=== PATIENT | male | born 1950 | race Caucasian/White ===

== ENCOUNTER 2019-06-18 10:02 | Inpatient (IN) ==
[2019-06-18 11:06] LABS: INR 1.2 (0.9-1.1); Partial Thromboplastin Ratio 0.9; Partial Thromboplastin Time 25.4 Seconds (21.0-31.0); Prothrombin Time 11.8 Seconds (9.0-12.0)
[2019-06-18 11:15] LABS: Albumin Level 3.5 gm/dl (3.4-5.0); BUN Creatinine Ratio 12.7 (10-20); Calcium 8.8 mg/dl (8.5-10.1); Creatinine Clr Calc Pharmacy 59.6 ml/min; Est GFR (African American) 74.1; Est GFR (Non-African American) 63.9; Potassium 4.1 mmol/L (3.5-5.1)
[2019-06-18] MEDS ORDERED: PANTOprazole 80 MG in DEXTROSE 5% 100 ML IV SCH (11:15)
[2019-06-18 11:19] LABS: Hematocrit (blood only) 25.3 % (42-52); Hemoglobin 7.3 g/dL (14.0-18.0); Mean Corpuscular Hemoglobin 23.9 pg (25-34); Mean Corpuscular Hgb Conc 28.9 g/dL (32-36); Mean Corpuscular Volume 82.7 fL (80-100); Mean Platelet Volume 11.6 fL (7.4-10.4); Platelet Count 750 K/uL (130-400); RDW Coefficient of Variation 23.1 % (11.5-14.5); RDW Standard Deviation 68.2 fL (36.4-46.3); Red Blood Count 3.06 M/uL (4.7-6.1); White Blood Count 11.77 K/uL (4.8-10.8)
[2019-06-18 11:27] LABS: Albumin Globulin Ratio 1.1 (0.9-2); Bilirubin,Total 0.5 mg/dl (0.2-1); Globulin 3.2 gm/dl (2.5-4.0); Total Protein 6.7 gm/dl (6.4-8.2); Troponin I 1.21 ng/ml (0-0.045)
[2019-06-18 11:31] LABS: Anisocytosis Present; Basophils # (auto) 0.04 K/uL (0-0.2); Basophils % (auto) 0.3 %; Eosinophils # (auto) 0.36 K/uL (0-0.5); Eosinophils % (auto) 3.1 %; Hypochromasia Present; Immature Granulocytes # (auto) 0.02 K/uL (0.00-0.02); Immature Granulocytes % (auto) 0.2 %; Lymphocytes # (auto) 1.07 K/uL (1.2-3.4); Lymphocytes % (auto) 9.1 %; Monocytes # (auto) 0.63 K/uL (0.11-0.59); Monocytes % (auto) 5.4 %; Neutrophils # (auto) 9.65 K/uL (1.4-6.5); Neutrophils % (auto) 81.9 %; Polychromasia 2+; Spherocytes 1+; Tear Drop Cells 1+
[2019-06-18] MEDS ORDERED: IOVERSOL 100ml IV PRN (11:51)
[2019-06-18] MEDS ORDERED: SODIUM CHLORIDE 0.9% 250 ML IV PRN ×3 (11:55→23:38)
--- NOTE | 2019-06-18 12:01 | CT Scan Report ---
CT abd pelvis IV con only CT DOSE: 742.69 mGycm HISTORY: gastric cancer w/ dark tarry stools TECHNIQUE: Multiaxial CT images of the abdomen and pelvis were performed following the use of intrave nous contrast. A dose lowering technique was utilized adhering to the principles of ALARA. COMPARISON STUDY: None. FINDINGS: The lung bases are clear. Liver is uniform. Spleen is enlarged with a maximum linear dimens ion of 14 cm. It appears to be general wall thickening of the stomach. Components of this may be technical although given the history of a gastric neoplastic process. Neoplasm is not excluded. The small bowel appears to be unremarkable. There is no significant periaortic or mesenteric adenopat hy. The colonic bowel pattern is nonobstructive. There are scattered diverticuli throughout the colon wit h no evidence for acute diverticulitis. The kidneys are negative for hydronephrosis. There are unrema rkable postoperative changes of the low lumbar spine consistent with laminectomy and fusion. IMPRESSION: 1. Generalized rather prominent wall thickening of the stomach 2. This potentially is neoplastic versus technical lack of distention. 3. Moderate splenomegaly. 4. Scattered colonic diverticuli with no evidence for diverticulitis. ACT 112: Negative or not required by law. The above report was generated using voice recognition software. It may contain grammatical, syntax or spelling errors. Electronically signed by: oJsh Charles M.D. 06/18/2019 12:00 PM
[2019-06-18] MEDS: PANTOprazole 40 MG in DEXTROSE 5% 100 ML IV SCH ×3 (12:20→23:06)
[2019-06-18] MEDS ORDERED: ED DKA INSULIN DRIP ONE (12:32)
[2019-06-18] MEDS ORDERED: GLUCAGON FOR INJ 1 MG VIAL SQ PRN (12:32)
[2019-06-18] MEDS ORDERED: GLUCOSE 10 TABS/TUBE PO PRN (12:32)
[2019-06-18] MEDS ORDERED: SODIUM CHLORIDE 0.9% 1000ML 1,000 ML IV ONE (12:32)
[2019-06-18] MEDS ORDERED: DEXTROSE 50% 50 ML SYRINGE IV PRN (12:32)
[2019-06-18] MEDS ORDERED: GLUCOSE 40% GEL 15 GM TUBE PO PRN (12:32)
[2019-06-18] MEDS ORDERED: DKA GOAL RANGE 150-250 mg/dl ONE (12:32)
[2019-06-18] MEDS ORDERED: CARBOHYDRATES FOR HYPOGLYCEMIA PO PRN (12:32)
[2019-06-18] MEDS ORDERED: INSULIN REGULAR 250 UNITS in SODIUM CHLORIDE 0.9% 247.5 ML IV SCH (12:45)
--- NOTE | 2019-06-18 13:24 | History & Physical Report ---
Date of Service June 18, 2019 Assessment & Plan (1) Anemia: (2) Melena: Pt is 68 y/o M with PMH HTN, HLD, h/o SMA stenosis, myeloproliferative disorder, thrombocytosis, iron deficiency anemia, gastric carcinoma presented to ER for anemia - Hgb: 6.7 found on outpatient labs today. H/O EGD: 04/10/19 - signet ring cell carcinoma, gastric ulcer Today In ER P: 64, R: 20, BP: 108/64, 99% on RA. H/H: 7.3/25.3. (baseline Hgb~8-9, was 9.0 on 06/08/19), INR: 1.2, Plt: 750 CT ABD/PELVIS: Generalized rather prominent wall thickening of the stomach, This potentially is neoplastic versus technical lack of distention. Moderate splenomegaly. Scattered colonic diverticuli with no evidence for diverticulitis. -Fecal occult pending -In ER given Protonix bolus and drip -Continue Protonix IV -NPO -Transfuse 2 units PRBCs -Monitor H&H -Alcohol cessation encouraged -Avoid NSAIDs -Will continue aspirin 81mg with current elevated troponin -GI consult, spoke with MARSHA Rick -CBC, BMP in am (3) Elevated troponin: Anterior Chest pain yesterday and 2 days ago. No current CP Troponin: 1.2. EKG T wave inversions inferiorly, laterally, new compared to EKG 08/2018 R/O ACS. Risk factors: HTN, hyperlipidemia. DDX: Demand ischemia -Monitor Vitals -Repeat EKG in am -Will trend troponin -Echo -Continue statin, atenolol -Will continue aspirin for now ASA -Hold on heparin secondary to anemia as above -Cardiology consult (4) Gastric cancer: Following with Dr Givens for signet ring cell gastric carcinoma diagnosed in 03/2019. Pt was to start modified FOLFOX 6 chemo today, however was not started yet. Planned surgical intervention with Dr Gallardo at [facility]. Had port placed by Dr Cobian on 06/12/2019. 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 See addendum History of Present Illness Chief Complaint: Abnormal labs- anemia Primary Care Provider: Jesenia Hartman MD Pt is 68 y/o M with PMH HTN, HLD, h/o SMA stenosis, gastric carcinoma presented to ER for anemia found on outpatient labs today. Pt with history myeloproliferative disorder, thrombocytosis, iron deficiency anemia and is following with Dr Givens for signet ring cell gastric carcinoma diagnosed in 03/2019. Pt was to start modified FOLFOX 6 chemo today, however was not started yet. Planned surgical intervention with Dr Gallardo at [facility]. Pt had port placed by Dr Cobian on 06/12/2019. Today outpatient labs with Hgb: 6.7 and was referred to ER. Pt reports daily melena since 02/2019. Pt reports chronic fatigue and generalized weakness however reports increased fatigue past several days. 3 days ago noted dizziness with standing. Today SOB with climbing flight of stairs. Pt states 2 days ago had constant aching pain across his chest that was worse with lying supine. Denies any SOB, diaphoresis or dizziness with the CP. He took 3 OTC Aleve that evening and yesterday reports had decreased CP. Today without any further chest pain. Denies nausea, vomiting or abdominal pain. Drinks 3-4 beers daily. Takes Aleve a couple of times a month. Denies history blood transfusion in past. Denies fever/chills, diaphoresis, [place], syncope, vision changes, neck pain, orthopnea, palpitations, cough, sore throat, choking, otalgia, rhinorrhea, paresthesias, weakness, extremity weakness, extremity edema, rashes, urinary symptoms. Allergies Allergy/AdvReac Type Severity Reaction Status Date / Time No Known Allergies Allergy Verified 06/18/19 11:05 Home Medications Home Medications Medication Instructions Recorded Confirmed Type aspirin [Aspirin Low Dose] 81 mg PO QAM 04/05/19 06/18/19 History atenolol 50 mg PO QAM 04/05/19 06/18/19 History cholecalciferol (vitamin D3) 1,000 unit PO QAM 04/05/19 06/18/19 History [Vitamin D3] ferrous sulfate 143 mg PO QAM 04/05/19 06/18/19 History losartan 50 mg PO QAM 04/05/19 06/18/19 History omeprazole 40 mg PO QAM 04/05/19 06/18/19 History simvastatin 40 mg PO DAILY 04/05/19 06/18/19 History Past Med/Surg History Medical History Anemia GERD (gastroesophageal reflux disease) Hyperlipidemia Hypertension Iron deficiency anemia Lumbar stenosis Myeloproliferative disorder SMA stenosis Thrombocytosis Surgical History Fusion of spine lumbar History of carpal tunnel release left History of colonoscopy History of esophagogastroduodenoscopy (EGD) 04/10/19 - signet ring cell carcinoma, gastric ulcer; [facility] History of esophagogastroduodenoscopy (EGD) 05/10/2019 - EGD, EUS; [facility] History of tonsillectomy Family History Mother FHx: breast cancer Social History Preferred Language: Malawian Communication Ability: Effective Record Filing Clerk Required: No Beliefs That Will Affect Care: None Current Living Situation: Significant Other Other Information That Helps Us Care for You: No Feels Safe at Home: Yes Safety Concerns: Feels Safe At This Time Smoking Status: Former smoker Tobacco Type: cigarettes ; Cigarettes Per Day: 1 ppd x 38 years ; Second Hand Exposure: No ; Hx Alcohol Use: Yes (3-4 beers a day ) Alcohol type: beer Hx Substance Use: No Review of Systems Review of Systems: All systems reviewed & are unremarkable except as noted in HPI & below Physical Exam Physical Exam: General: no distress, WDWN Head: normocephalic, atraumatic Eyes: PERRL, EOM's intact, conjunctiva pale, anicteric ENT: normal inspection external ears, nose, mucous membranes moist Neck: supple, trachea midline Lungs: clear, no respiratory distress, no wheezing/rhonchi/rales CV: RRR, no murmur, no pretibial edema; left upper chest wall with healing incision without erythema Abd: normal BS, soft, non-tender Ext: no cyanosis, no calf tenderness Neuro: A&O x 3, no focal deficits noted, normal affect Skin: warm, dry Results & Data Vital Signs (Past 12 Hours) Vital Signs Temp Pulse Resp BP Pulse Ox 06/18/19 13:15 36.8 C 67 18 116/83 95 06/18/19 12:31 19 06/18/19 12:30 22 120/66 06/18/19 12:01 65 16 06/18/19 12:00 64 18 126/76 06/18/19 11:52 69 12 133/86 06/18/19 11:30 65 20 96 06/18/19 11:00 63 18 96 06/18/19 10:41 62 18 100 06/18/19 10:36 62 17 117/59 L 100 06/18/19 10:31 99 06/18/19 10:24 36.7 C 64 20 108/64 99 Laboratory Results Short CBC 06/18/19 Range/Units 10:38 WBC 11.77 H (4.8-10.8) K/uL Hgb 7.3 L (14.0-18.0) g/dL Hct 25.3 L (42-52) % Plt Count 750 H (130-400) K/uL BMP 06/18/19 10:38 Sodium 141 Potassium 4.1 Chloride 109 H Carbon Dioxide 27 BUN 15 Creatinine 1.18 Glucose 106 H Calcium 8.8 Cardiac Enzymes 06/18/19 Range/Units 10:38 Troponin I 1.210 H* (0-0.045) ng/ml Liver Function 06/18/19 Range/Units 10:38 Total Bilirubin 0.5 (0.2-1) mg/dl AST 19 (15-37) U/L ALT 14 (12-78) U/L Alkaline Phosphatase 81 (45-117) U/L Albumin 3.5 (3.4-5.0) gm/dl Diagnostic Findings CXR: IMPRESSION: No active disease in the chest. CT ABD/PELVIS: IMPRESSION: 1. Generalized rather prominent wall thickening of the stomach 2. This potentially is neoplastic versus technical lack of distention. 3. Moderate splenomegaly. 4. Scattered colonic diverticuli with no evidence for diverticulitis. ECG Rate (beats per minute): 62 Rhythm: sinus rhythm Findings: + T-wave inversion (Inferior, Lateral) Code Status & VTE Plan VTE Prophylaxis Plan VTE Prophylaxis will be ordered: Yes Supervising Physician Co-Signing Physician Notes HISTORY: Record reviewed. Patient interviewed and examined in ED. Care coordinated with Sarah Lance PA-C. Please refer to her documentation for complete history. Briefly, 68 YO male w history of hypertension, SMA stenosis, adenocarcinoma of stomach. Gastric Ca diagnosed in March (EGD revealed gastric ulcer, path demonstrated adenocarcinoma). Intermittent dark stools since February. Baseline Hgb around 9. Labs done earlier today in clinic demonstrated Hgb of 6.7. Referred to ED for further management. Taking aspirin 81 mg daily + naproxen PRN. Drinks a few beers / day. Episode of chest pain 2 days prior to admission. CP occurred after eating chicken wing and described as sharp pain across chest. It was not pleuritic in nature. CP was worse in supine position and better when sitting up. Associated with mild SOB and diaphoresis; no N/V. Pain lasted all night long and was relieved by naproxen the next morning. No exertional chest pain, but he was very fatigued after climbing stairs in clinic today. EXAM: General- no distress Lungs- clear to auscultation; no respiratory distress Cardiovascular- RRR; no murmur; no gallop; no rub; no JVD; no pretibial edema Abdomen- + bowel sounds, soft, nontender Extremities- no cyanosis; no calf tenderness Neuro- alert, oriented Skin- warm & dry DATA: Hgb 7.3, MCV 82.7, WBC 11,770, plts 750,000. PT 11.8, INR 1.2, PTT 25. Lytes, BUN, creatinine normal. Troponin 1.210. Other lab studies as noted. Chest x-ray reviewed - left subclavian port, no infiltrates, effusions, CHF. EKG performed at 1039 reviewed and demonstrated NSR at 62 / minute, downsloping ST segments V5-6, inverted T-waves inferiorly and laterally. ASSESSMENT AND PLAN: CHEST PAIN CP as described above. Troponin I elevated. EKG shows inferolateral ST / T-wave changes as noted. Consider acute coronary syndrome (e.g., non-STEMI), dianna / pericarditis, pulmonary embolism. Check echo. Consult Cardiology. Will not order CTA chest at this time because (1) IV contrast administered for CT abdomen (2) anticoagulation / thrombolytics contraindicated. Check venous duplex lower extremities. Hold or continue ASA? ANEMIA / GI BLEED Intermittent GI bleeding from malignant gastric ulcer. Hgb 7.3. lower than baseline. Hemodynamically stable. 2 units pRBC's ordered.. PPI. Follow H/H. GI consulted. ADENOCARCINOMA OF STOMACH Per Heme / Onc. Please refer to REZA Lance's documentation for discussion of other issues. (1) Gastric cancer Malignant neoplasm of stomach location: unspecified location Qualified Code(s): C16.9 - Malignant neoplasm of stomach, unspecified
--- NOTE | 2019-06-18 14:03 | XRay Report ---
XR chest 1V portable CLINICAL HISTORY: chest pain, anemia COMPARISON STUDY: 07/04/2014 FINDINGS: The heart is the upper limits of normal in size. There is no failure. There is no focal pul monary consolidation. There are no pleural effusions. There is a left-sided A-Port catheter. There is no pneumothorax. There is no free intraperitoneal air.[ IMPRESSION: No active disease in the chest. ACT 112: Negative or not required by law. Electronically signed by: Benjamin Hatch M.D. 06/18/2019 2:01 PM
--- NOTE | 2019-06-18 15:14 | Gastrointestinal Consultation ---
Date of Consultation June 18, 2019 Assessment & Plan (1) Melena: (2) Elevated troponin: (3) Anemia: (4) Gastric cancer: Pt is a 68 y/o male w gastric adenocarcinoma who was referred to ED for symptomatic anemia. He had received 2 doses of Venofer IV, last on 05/30. He was supposed to start FOLFOX chemo today but cancelled due to anemia. Plan was for him to undergo FOLFOX x 3 then gastrectomy by GI Surgery. He does have melena but this hasn't changed in amt, frequency. He has SHIELDS, chest pressure and fatigue symptoms. Troponin up on eval. - PRBC transfusion and monitor H/H closely. - PPI bolus and gtt - Cardiology to be consulted - Will monitor pt and potentially repeat EGD if cleared by Cardiology Attg add: I interviewed and examined pt, reviewed chart and labs. Pt with ho gastric cancer presenting as an ulcer without mass effect now admit with intermittent melena, anemia. Of note, BUN is not elevated. Recs as above- Likely bleeding from gastric cancer. Would consider EGD if cleared by cards to revaluate malignant ulcer, to see if there is any possibility of intervention that may decrease risk of re-bleed. History of Present Illness Reason for Consultation: Anemia, melena; hx of gastric adenocarcinoma Requesting Physician: Dr. Wade Jones Attending Physician: Dr. Timothy Etienne History of Present Illness Pt is a 68 y/o male who was diagnosed with gastric adenocarcioma via EGD/EUS 05/10/2019 who was referred to ED today after outpt blood ct showed severe anemia w Hgb of 6. Baseline Hgb close to 9. He had received Venofer IV 05/23 and 05/31. He takes iron supplements daily. He was supposed to start his first round of chemo but this got cancelled after abnormal blood ct. Plan was for him to undergo 3 rounds of FOLFOX then gastrectomy by Dr. Rex Gallardo (GI Surgery). He had been noticing dark tarry stools since February with each bowel movement. Frequency, amount and consistency of stools havent' changed. However last weekend he started to notice dyspnea on exertion, chest pressure, fatigue. Denies abd pain, n/v. he previously had gastric ulcers seen on March 2019 EGD, he admits to take Aleve periodically for leg pain but had stopped this recently. He drinks 2 beers a day, denies tobacco uses. Labs reviewed: WBC 11, H/H 7.3/25, MCV 82, Plt 750, PT/INR 11.8/1.2, BUN/Cr 15/1.18. Troponin up 1.2 CT abd/pelvis w contrast: 1. Generalized rather prominent wall thickening of the stomach 2. This potentially is neoplastic versus technical lack of distention. 3. Moderate splenomegaly. 4. Scattered colonic diverticuli with no evidence for diverticulitis. CXR: IMPRESSION: No active disease in the chest. Allergies Allergy/AdvReac Type Severity Reaction Status Date / Time No Known Allergies Allergy Verified 06/18/19 11:05 Home Medications Home Medications Medication Instructions Recorded Confirmed Type aspirin [Aspirin Low Dose] 81 mg PO QAM 04/05/19 06/18/19 History atenolol 50 mg PO QAM 04/05/19 06/18/19 History cholecalciferol (vitamin D3) 1,000 unit PO QAM 04/05/19 06/18/19 History [Vitamin D3] ferrous sulfate 143 mg PO QAM 04/05/19 06/18/19 History losartan 50 mg PO QAM 04/05/19 06/18/19 History omeprazole 40 mg PO QAM 04/05/19 06/18/19 History simvastatin 40 mg PO DAILY 04/05/19 06/18/19 History Patient History Medical History Anemia GERD (gastroesophageal reflux disease) Hyperlipidemia Hypertension Iron deficiency anemia Lumbar stenosis Myeloproliferative disorder SMA stenosis Thrombocytosis Surgical History Fusion of spine lumbar History of carpal tunnel release left History of colonoscopy History of esophagogastroduodenoscopy (EGD) 04/10/19 - signet ring cell carcinoma, gastric ulcer; [facility] History of esophagogastroduodenoscopy (EGD) 05/10/2019 - EGD, EUS; [facility] [place] [facility] History of tonsillectomy Family History Mother FHx: breast cancer Social History Preferred Language: Citizen Of [place] Communication Ability: Effective Industrial Designer Required: No Beliefs That Will Affect Care: None marital status: Single Current Living Situation: Significant Other Other Information That Helps Us Care for You: No Feels Safe at Home: Yes Safety Concerns: Feels Safe At This Time Smoking Status: Former smoker Tobacco Type: cigarettes ; Cigarettes Per Day: 1 ppd x 38 years ; Second Hand Exposure: No ; Hx Alcohol Use: Yes (3-4 beers a day ) Alcohol type: beer Hx Substance Use: No Review of Systems Review of Systems: All systems reviewed & are unremarkable except as noted in HPI & below Physical Exam Constitutional: WD/WN, vitals as above well groomed, cooperative and comfortable Eyes: PERRL, conjunctivae normal, anicteric sclerae ENMT: external ear and nose normal, oropharynx normal Respiratory: normal respiratory effort, lungs clear to auscultation Cardiovascular: RRR, no murmur, no edema Gastrointestinal (Abdomen): normal bowel sounds, soft, nontender, no hepatosplenomegaly Skin: no rashes, warm and dry no jaundice Psychiatric: A+Ox3, euthymic affect Lymphatic: no lymphedema Results & Data ([facility]) Vital Signs (Past 12 Hours) Vital Signs Temp Pulse Resp BP Pulse Ox 06/18/19 14:30 68 18 136/78 06/18/19 14:00 36.7 C 66 18 139/73 98 06/18/19 13:45 36.8 C 69 18 143/77 H 97 06/18/19 13:30 36.8 C 69 18 138/71 97 06/18/19 13:15 36.8 C 67 18 116/83 95 06/18/19 12:31 19 06/18/19 12:30 22 120/66 06/18/19 12:01 65 16 06/18/19 12:00 64 18 126/76 06/18/19 11:52 69 12 133/86 06/18/19 11:30 65 20 96 06/18/19 11:00 63 18 96 06/18/19 10:41 62 18 100 06/18/19 10:36 62 17 117/59 L 100 06/18/19 10:31 99 06/18/19 10:24 36.7 C 64 20 108/64 99 (1) Gastric cancer Malignant neoplasm of stomach location: unspecified location Qualified Code(s): C16.9 - Malignant neoplasm of stomach, unspecified
[2019-06-18] MEDS ORDERED: NITROGLYCERIN SL 0.4 MG/TAB TAB SL PRN (15:54)
[2019-06-18] MEDS ORDERED: ONDANSETRON INJ 2 MG/ML 2 ML VIAL IV PRN (15:54)
[2019-06-18] MEDS ORDERED: ACETAMINOPHEN 325 MG TAB PO PRN (15:54)
[2019-06-18] MEDS ORDERED: INSULIN ASPART 100 UNITS/ML 3 ML PEN SC SCH (16:30)
--- NOTE | 2019-06-18 16:34 | Cardiology Consultation ---
Date of Consultation June 18, 2019 Assessment & Plan (1) Elevated troponin: Patient presents noting symptoms of chest pain no atypical for angina over the past weekend symptoms described as burning sharp pain after meal of hot wings. Improved when sitting upright. He is significantly anemic on presentation for anticipated chemotherapy today EKG demonstrates new inferolateral ST segment inversion. Echocardiogram demonstrates subtle hypokinesis of the inferior posterior byrne with preserved LV function moderate mitral discussion sufficiency Plan: We will trend troponins assess for acute change. Ultimate goal be to stabilize medically if possible as any coronary or cardiac intervention would warrant anticoagulation and dual antiplatelet therapies for minimum 1 month. We will continue atenolol add topical nitrates continue losartan agree with transfusion aggressively to hemoglobin greater than 10 given possible anemia induced ischemia We will keep n.p.o. after midnight and follow with you (2) Symptomatic anemia: (3) Hypertension: (4) Gastric cancer: History of Present Illness Reason for Consultation: Chest pain, abnormal EKG Requesting Physician: Dr. Wade Jones Attending Physician: Wade Jones MD History of Present Illness Patient is a 68-year-old male without prior cardiac history per description but carries an underlying history of recent diagnosis of gastric carcinoma with associated profound anemia, underlying myelo proliferative disorder with thrombocytosis. On therapy for chronic hypertension and hyperlipidemia Patient last week underwent port insertion and anticipated beginning chemotherapy today. On presentation he was noted to be markedly anemic has been transferred for further treatment and evaluation. He does note some episodes of chest pressure pain over the weekend. Symptoms are described as sharp pain when recumbent improved when sitting upright after eating a plate of wings. Symptoms lasted all night on Tuesday night. Worse again postprandially on Tuesday. No prior history of angina myocardial infarction congestive heart failure. No recent fevers chills or infections. Only minimal tenderness over surgical incision the left chest. Appetite is usually good. Patient is a non-smoker since 2006. Does drink up to 6 beers per day. No diarrhea loose stools though stools are chronically black on iron supplement Currently without symptoms or complaints. EKG on presentation to ER however demonstrates T wave inversion in the inferolateral leads Allergies Allergy/AdvReac Type Severity Reaction Status Date / Time No Known Allergies Allergy Verified 06/18/19 11:05 Home Medications Home Medications Medication Instructions Recorded Confirmed Type aspirin [Aspirin Low Dose] 81 mg PO QAM 04/05/19 06/18/19 History atenolol 50 mg PO QAM 04/05/19 06/18/19 History cholecalciferol (vitamin D3) 1,000 unit PO QAM 04/05/19 06/18/19 History [Vitamin D3] ferrous sulfate 143 mg PO QAM 04/05/19 06/18/19 History losartan 50 mg PO QAM 04/05/19 06/18/19 History omeprazole 40 mg PO QAM 04/05/19 06/18/19 History simvastatin 40 mg PO DAILY 04/05/19 06/18/19 History Patient History Medical History Anemia GERD (gastroesophageal reflux disease) Hyperlipidemia Hypertension Iron deficiency anemia Lumbar stenosis Myeloproliferative disorder SMA stenosis Thrombocytosis Surgical History Fusion of spine lumbar History of carpal tunnel release left History of colonoscopy History of esophagogastroduodenoscopy (EGD) 04/10/19 - signet ring cell carcinoma, gastric ulcer; [facility] History of esophagogastroduodenoscopy (EGD) 05/10/2019 - [place] [facility] [place] of tonsillectomy Family History Mother FHx: breast cancer Social History Preferred Language: Citizen Of [place] Communication Ability: Effective Acid Supervisor Required: No Beliefs That Will Affect Care: None Current Living Situation: Significant Other Other Information That Helps Us Care for You: No Feels Safe at Home: Yes Safety Concerns: Feels Safe At This Time Smoking Status: Former smoker Tobacco Type: cigarettes ; Cigarettes Per Day: 1 ppd x 38 years ; Second Hand Exposure: No ; Hx Alcohol Use: Yes (3-4 beers a day ) Alcohol type: beer Hx Substance Use: No Review of Systems Review of Systems: All systems reviewed & are unremarkable except as noted in HPI & below Physical Exam Constitutional: no acute distress Eyes: PERRL, conjunctivae normal, anicteric sclerae ENMT: external ear and nose normal, oropharynx normal Neck: trachea midline, no thyromegaly Respiratory: normal respiratory effort, lungs clear to auscultation Cardiovascular: Rate/Rhythm: regular rate and regular rhythm Heart Sounds: normal S1 and normal S2; no gallop and no murmur Palpation: normal PMI Vessels: normal carotid upstroke and radial pulses present; no JVD and no carotid bruit Extremities: no edema Chest (Breasts): Additional Comments: Recently implanted a port in the upper left chest incision clean without tenderness Gastrointestinal (Abdomen): normal bowel sounds, soft, nontender, no hepatosplenomegaly Musculoskeletal: no cyanosis or clubbing, extremities motor strength 5/5 Skin: no rashes, warm and dry Neurologic: PERRL, EOMI, accommodation nl, no face palsy, no dysarthria Psychiatric: A+Ox3, euthymic affect Results & Data ([facility]) Vital Signs (Past 12 Hours) Vital Signs Temp Pulse Resp BP Pulse Ox 06/18/19 14:30 68 18 136/78 06/18/19 14:00 36.7 C 66 18 139/73 98 06/18/19 13:45 36.8 C 69 18 143/77 H 97 06/18/19 13:30 36.8 C 69 18 138/71 97 06/18/19 13:15 36.8 C 67 18 116/83 95 06/18/19 12:31 19 06/18/19 12:30 22 120/66 06/18/19 12:01 65 16 06/18/19 12:00 64 18 126/76 06/18/19 11:52 69 12 133/86 06/18/19 11:30 65 20 96 06/18/19 11:00 63 18 96 06/18/19 10:41 62 18 100 06/18/19 10:36 62 17 117/59 L 100 06/18/19 10:31 99 06/18/19 10:24 36.7 C 64 20 108/64 99 Laboratory Results Laboratory Results - last 24 hr 06/18/19 06/18/19 06/18/19 10:38 10:38 10:38 WBC 11.77 H RBC 3.06 L Hgb 7.3 L Hct 25.3 L MCV 82.7 MCH 23.9 L MCHC 28.9 L RDW Std Deviation 68.2 H RDW Coeff of Evens 23.1 H Plt Count 750 H MPV 11.6 H Immature Gran % (Auto) 0.2 Neut % (Auto) 81.9 Lymph % (Auto) 9.1 [place] % (Auto) 5.4 Eos % (Auto) 3.1 Baso % (Auto) 0.3 Immature Gran # (Auto) 0.02 Neut # (Auto) 9.65 H Lymph # (Auto) 1.07 L [place] # (Auto) 0.63 H Eos # (Auto) 0.36 Baso # (Auto) 0.04 Polychromasia 2+ Hypochromasia Present Anisocytosis Present Spherocytes 1+ Tear Drop Cells 1+ PT 11.8 INR 1.2 H APTT 25.4 PTT Ratio 0.9 Sodium Potassium Chloride Carbon Dioxide Anion Gap BUN Creatinine Est Cr Clr Drug Dosing Est GFR ( Amer) Est GFR (Non-Af Amer) BUN/Creatinine Ratio Glucose Calcium Total Bilirubin AST ALT Alkaline Phosphatase Troponin I Total Protein Albumin Globulin Albumin/Globulin Ratio Blood Type O Positive Blood Type Recheck Antibody Screen NEGATIVE Crossmatch See Detail 06/18/19 06/18/19 06/18/19 10:38 12:05 16:20 WBC RBC Hgb Hct MCV MCH MCHC RDW Std Deviation RDW Coeff of Evens Plt Count MPV Immature Gran % (Auto) Neut % (Auto) Lymph % (Auto) [place] % (Auto) Eos % (Auto) Baso % (Auto) Immature Gran # (Auto) Neut # (Auto) Lymph # (Auto) [place] # (Auto) Eos # (Auto) Baso # (Auto) Polychromasia Hypochromasia Anisocytosis Spherocytes Tear Drop Cells PT INR APTT PTT Ratio Sodium 141 Potassium 4.1 Chloride 109 H Carbon Dioxide 27 Anion Gap 5.0 BUN 15 Creatinine 1.18 Est Cr Clr Drug Dosing 59.6 Est GFR ( Amer) 74.1 Est GFR (Non-Af Amer) 63.9 BUN/Creatinine Ratio 12.7 Glucose 106 H Calcium 8.8 Total Bilirubin 0.5 AST 19 ALT 14 Alkaline Phosphatase 81 Troponin I 1.210 H* Pending Total Protein 6.7 Albumin 3.5 Globulin 3.2 Albumin/Globulin Ratio 1.1 Blood Type Blood Type Recheck O Positive Antibody Screen Crossmatch (1) Gastric cancer Malignant neoplasm of stomach location: unspecified location Qualified Code(s): C16.9 - Malignant neoplasm of stomach, unspecified
--- NOTE | 2019-06-18 16:35 | Emergency Department Note ---
Entered by Ayse Perez acting as a scribe for History of Present Illness General Chief complaint: Abnormal Labs/Diagnostic Testing Stated complaint: ABNORMAL LABS, SENT BY Source: patient History of Present Illness Onset (ago): month(s) 3 Location: abdomen (dark stool) Pain Consistency: + other (persistent) Quality: + other (dark stool) Associated symptoms: no cough and no nausea/vomiting Treatments prior to arrival: none The patient is a 68 year old male presenting to the Emergency Department complaining of persistent dark stools starting 3 months ago. The patient reports that his stool has been dark colored for months. He states that he had outpatient lab work done [employer] that showed his hemoglobin was 6.7, down from his previous count which was 9. He explains that he has never experienced these symptoms before. He notes that he hasnt taken any medications for his symptoms [employer]. The patient reports that he has gastric cancer and was supposed to start chemotherapy this morning at 0900. He states that he follows with Dr. Givens Oncologist. He notes that he doesnt use blood thinners. The patient denies nausea, vomiting, cough, rhinorrhea and history of abdominal surgeries. Home Medications Home Medications Medication Instructions Recorded Confirmed Type aspirin [Aspirin Low Dose] 81 mg PO QAM 04/05/19 06/18/19 History atenolol 50 mg PO QAM 04/05/19 06/18/19 History cholecalciferol (vitamin D3) 1,000 unit PO QAM 04/05/19 06/18/19 History [Vitamin D3] ferrous sulfate 143 mg PO QAM 04/05/19 06/18/19 History losartan 50 mg PO QAM 04/05/19 06/18/19 History omeprazole 40 mg PO QAM 04/05/19 06/18/19 History simvastatin 40 mg PO DAILY 04/05/19 06/18/19 History Allergies Allergy/AdvReac Type Severity Reaction Status Date / Time No Known Allergies Allergy Verified 06/18/19 11:05 Past Med/Surg History Medical History Anemia GERD (gastroesophageal reflux disease) Hyperlipidemia Hypertension Iron deficiency anemia Lumbar stenosis Myeloproliferative disorder SMA stenosis Thrombocytosis Surgical History Fusion of spine lumbar History of carpal tunnel release left History of colonoscopy History of esophagogastroduodenoscopy (EGD) 04/10/19 - signet ring cell carcinoma, gastric ulcer; [facility] [place] History of esophagogastroduodenoscopy (EGD) 05/10/2019 - EGD, EUS; [facility] [place] History of tonsillectomy Family History Mother FHx: breast cancer Social History Preferred Language: [place] Communication Ability: Effective Representative Required: No Beliefs That Will Affect Care: None Current Living Situation: Significant Other Other Information That Helps Us Care for You: No Feels Safe at Home: Yes Safety Concerns: Feels Safe At This Time Smoking Status: Former smoker Tobacco Type: cigarettes ; Cigarettes Per Day: 1 ppd x 38 years ; Second Hand Exposure: No ; Hx Alcohol Use: Yes (3-4 beers a day ) Alcohol type: beer Hx Substance Use: No Review of Systems See HPI for pertinent positives & negatives. and A total of 10 systems reviewed and were otherwise negative Physical Exam Vital Signs Vital Signs - 24 hr 06/18/19 10:24 06/18/19 10:31 06/18/19 10:36 Temperature 36.7 C Temperature Source Oral Pulse Rate 64 62 Pulse Rate from SpO2 Sensor 63 Respiratory Rate 20 17 Respiratory Effort / Characteristics Non-Labored Spontaneous Respiratory Depth Normal Respiratory Pattern Regular Blood Pressure 108/64 117/59 L Blood Pressure Mean 78 77 Blood Pressure Position Sitting Pulse Oximetry 99 99 100 Oxygen Delivery Method Room Air Room Air Sepsis Recent Fever Within 48 Hours No Sepsis New/Unexplained Change in Mental Status No Sepsis Action Taken by Nursing No Action Required 06/18/19 10:41 06/18/19 11:00 06/18/19 11:30 Temperature Temperature Source Pulse Rate 62 63 65 Pulse Rate from SpO2 Sensor 63 63 64 Respiratory Rate 18 18 20 Respiratory Effort / Characteristics Respiratory Depth Respiratory Pattern Blood Pressure Blood Pressure Mean Blood Pressure Position Pulse Oximetry 100 96 96 Oxygen Delivery Method Sepsis Recent Fever Within 48 Hours Sepsis New/Unexplained Change in Mental Status Sepsis Action Taken by Nursing 06/18/19 11:52 06/18/19 12:00 06/18/19 12:01 Temperature Temperature Source Pulse Rate 69 64 65 Pulse Rate from SpO2 Sensor Respiratory Rate 12 18 16 Respiratory Effort / Characteristics Respiratory Depth Respiratory Pattern Blood Pressure 133/86 126/76 Blood Pressure Mean 97 89 Blood Pressure Position Pulse Oximetry Oxygen Delivery Method Sepsis Recent Fever Within 48 Hours Sepsis New/Unexplained Change in Mental Status Sepsis Action Taken by Nursing 06/18/19 12:30 06/18/19 12:31 Temperature Temperature Source Pulse Rate Pulse Rate from SpO2 Sensor Respiratory Rate 22 19 Respiratory Effort / Characteristics Respiratory Depth Respiratory Pattern Blood Pressure 120/66 Blood Pressure Mean 83 Blood Pressure Position Pulse Oximetry Oxygen Delivery Method Sepsis Recent Fever Within 48 Hours Sepsis New/Unexplained Change in Mental Status Sepsis Action Taken by Nursing GENERAL: Patient is sitting up in bed, chronically ill appearing. NAD. Non- toxic. EYE EXAM: normal conjunctiva. OROPHARYNX: no exudate, no erythema, lips, buccal mucosa, and tongue normal and mucous membranes are moist NECK: supple, no nuchal rigidity, no adenopathy, non-tender LUNGS: Clear to auscultation. Normal chest wall mechanics HEART: no murmurs, S1 normal and S2 normal CHEST: Port in left upper chest wall. Incision C/D/I. ABDOMEN: abdomen soft, non-tender, normo-active bowel sounds, no masses, no rebound or guarding. BACK: Back is symmetrical on inspection and there is no deformity, no midline tenderness, no CVA tenderness. SKIN: no rashes and no bruising UPPER EXTREMITIES: upper extremities are grossly normal. LOWER EXTREMITIES: No pitting edema. NEURO EXAM: Normal sensorium, cranial nerves II-XII grossly intact, normal speech, no gross weakness of arms, no gross weakness of legs. Course Course ED COURSE: Vital signs were reviewed and normal. The patients medical record was reviewed The above diagnostic studies were performed and reviewed. ED treatments and interventions as stated above. 1035: The patient was evaluated in room B8. A complete history and physical examination was performed. 1218: I discussed the patients case with Emi Ayala PA-C. Dr. Karen Graham hospitalist will evaluate the patient for further management. 1222: Upon reevaluation, I discussed my findings with the patient and he unde cecilio and agrees with the treatment plan. Based on the patients age, coexisting illnesses, exam and lab findings the decision to treat as an inpatient was made. The patient remained stable while under my care. The patient will be evaluated for further management. Administered Medications Pantoprazole Sodium 40 mg/ (Dextrose) 100 mls @ 20 mls/hr IV Q5H CRISTIANE Stop: 07/18/19 11:29 Last Admin: 06/18/19 12:20 Dose: 20 mls/hr Documented by: [id number] Discontinued Medications Pantoprazole Sodium 80 mg/ (Dextrose) 120 mls @ 480 mls/hr IV TODAY@1115 CRISTIANE Stop: 06/18/19 11:29 Last Infusion: 06/18/19 12:20 Dose: 0 mls/hr Documented by: [id number] Admin: 06/18/19 11:56 Dose: 480 mls/hr Documented by: [id number] Ioversol (Optiray 320 100ml) 94 ml IV ONCE PRN PRN Reason: Interaction Checking Stop: 06/22/19 11:50 Last Admin: 06/18/19 11:51 Dose: 94 ml Documented by: [id number] Critical Care Time Critical Care Time: Yes Total Critical Care Time: 35 I have personally spent 35 minutes of critical care time in the direct management of this patient. This includes bedside care, interpretation of diagnostic studies, and testing, discussion with consultants, patient, and family members, and other required patient management activities. This 35 minutes is in excess of all separately billable procedures. Medical Decision Making Differential Diagnosis Differential diagnosis: Etiologies such as diverticulosis, AVM, coagulopathy, colitis, inflammatory bowel disease, malignancy, Shruthi-Woodruff tear, esophagitis, peptic ulcer disease, variceal bleed, gastritis, epistaxis, fissure, hemorrhoids, as well as others were entertained. Medical Records Attestation: I reviewed the patient's medical records. Home Medications Current Medication List: was personally reviewed by me Laboratory Data Attestation: I reviewed the patient's lab results. Result diagrams: 06/18/19 10:38 06/18/19 10:38 Lab Results 06/18/19 06/18/19 06/18/19 Range/Units 10:38 10:38 10:38 WBC 11.77 H (4.8-10.8) K/uL RBC 3.06 L (4.7-6.1) M/uL Hgb 7.3 L (14.0-18.0) g/dL Hct 25.3 L (42-52) % MCV 82.7 (80-100) fL MCH 23.9 L (25-34) pg MCHC 28.9 L (32-36) g/dL RDW Std Deviation 68.2 H (36.4-46.3) fL RDW Coeff of Evens 23.1 H (11.5-14.5) % Plt Count 750 H (130-400) K/uL MPV 11.6 H (7.4-10.4) fL Immature Gran % (Auto) 0.2 % Neut % (Auto) 81.9 % Lymph % (Auto) 9.1 % [place] % (Auto) 5.4 % Eos % (Auto) 3.1 % Baso % (Auto) 0.3 % Immature Gran # (Auto) 0.02 (0.00-0.02) K/uL Neut # (Auto) 9.65 H (1.4-6.5) K/uL Lymph # (Auto) 1.07 L (1.2-3.4) K/uL [place] # (Auto) 0.63 H (0.11-0.59) K/uL Eos # (Auto) 0.36 (0-0.5) K/uL Baso # (Auto) 0.04 (0-0.2) K/uL Polychromasia 2+ Hypochromasia Present Anisocytosis Present Spherocytes 1+ Tear Drop Cells 1+ PT 11.8 (9.0-12.0) Seconds INR 1.2 H (0.9-1.1) APTT 25.4 (21.0-31.0) Seconds PTT Ratio 0.9 Sodium (136-145) mmol/L Potassium (3.5-5.1) mmol/L Chloride (98-107) mmol/L Carbon Dioxide (21-32) mmol/L Anion Gap (3-11) BUN (7-18) mg/dl Creatinine (0.6-1.4) mg/dl Est Cr Clr Drug Dosing ml/min Est GFR ( Amer) Est GFR (Non-Af Amer) BUN/Creatinine Ratio (10-20) Glucose (70-99) mg/dl Calcium (8.5-10.1) mg/dl Total Bilirubin (0.2-1) mg/dl AST (15-37) U/L ALT (12-78) U/L Alkaline Phosphatase (45-117) U/L Troponin I (0-0.045) ng/ml Total Protein (6.4-8.2) gm/dl Albumin (3.4-5.0) gm/dl Globulin (2.5-4.0) gm/dl Albumin/Globulin Ratio (0.9-2) Blood Type O Positive Blood Type Recheck Antibody Screen NEGATIVE Crossmatch See Detail 06/18/19 06/18/19 Range/Units 10:38 12:05 WBC (4.8-10.8) K/uL RBC (4.7-6.1) M/uL Hgb (14.0-18.0) g/dL Hct (42-52) % MCV (80-100) fL MCH (25-34) pg MCHC (32-36) g/dL RDW Std Deviation (36.4-46.3) fL RDW Coeff of Evens (11.5-14.5) % Plt Count (130-400) K/uL MPV (7.4-10.4) fL Immature Gran % (Auto) % Neut % (Auto) % Lymph % (Auto) % [place] % (Auto) % Eos % (Auto) % Baso % (Auto) % Immature Gran # (Auto) (0.00-0.02) K/uL Neut # (Auto) (1.4-6.5) K/uL Lymph # (Auto) (1.2-3.4) K/uL [place] # (Auto) (0.11-0.59) K/uL Eos # (Auto) (0-0.5) K/uL Baso # (Auto) (0-0.2) K/uL Polychromasia Hypochromasia Anisocytosis Spherocytes Tear Drop Cells PT (9.0-12.0) Seconds INR (0.9-1.1) APTT (21.0-31.0) Seconds PTT Ratio Sodium 141 (136-145) mmol/L Potassium 4.1 (3.5-5.1) mmol/L Chloride 109 H (98-107) mmol/L Carbon Dioxide 27 (21-32) mmol/L Anion Gap 5.0 (3-11) BUN 15 (7-18) mg/dl Creatinine 1.18 (0.6-1.4) mg/dl Est Cr Clr Drug Dosing 59.6 ml/min Est GFR ( Amer) 74.1 Est GFR (Non-Af Amer) 63.9 BUN/Creatinine Ratio 12.7 (10-20) Glucose 106 H (70-99) mg/dl Calcium 8.8 (8.5-10.1) mg/dl Total Bilirubin 0.5 (0.2-1) mg/dl AST 19 (15-37) U/L ALT 14 (12-78) U/L Alkaline Phosphatase 81 (45-117) U/L Troponin I 1.210 H* (0-0.045) ng/ml Total Protein 6.7 (6.4-8.2) gm/dl Albumin 3.5 (3.4-5.0) gm/dl Globulin 3.2 (2.5-4.0) gm/dl Albumin/Globulin Ratio 1.1 (0.9-2) Blood Type Blood Type Recheck O Positive Antibody Screen Crossmatch Imaging Data Radiologist's Impression: Radiology results as stated below per my review and the radiologist's interpretation: CT abd pelvis IV con only CT DOSE: 742.69 mGycm HISTORY: gastric cancer w/ dark tarry stools TECHNIQUE: Multiaxial CT images of the abdomen and pelvis were performed following the use of intravenous contrast. A dose lowering technique was uti lized adhering to the principles of ALARA. COMPARISON STUDY: None. FINDINGS: The lung bases are clear. Liver is uniform. Spleen is enlarged with a maximum linear dimension of 14 cm. It appears to be general wall thickening of the stomach. Components of this may be technical although given the history of a gastric neoplastic process. Neoplasm is not excluded. The small bowel appears to be unremarkable. There is no significant periaortic or mesenteric adenopathy. The colonic bowel pattern is nonobstructive. There are scattered diverticuli throughout the colon with no evidence for acute diverticulitis. The kidneys are negative for hydronephrosis. There are unremarkable postoperative changes of the low lumbar spine consistent with laminectomy and fusion. IMPRESSION: 1. Generalized rather prominent wall thickening of the stomach 2. This potentially is neoplastic versus technical lack of distention. 3. Moderate splenomegaly. 4. Scattered colonic diverticuli with no evidence for diverticulitis. ACT 112: Negative or not required by law. The above report was generated using voice recognition software. It may contain grammatical, syntax or spelling errors. Electronically signed by: Josh Charles M.D. 06/18/2019 12:00 PM ECG Data Attestation: I personally reviewed and interpreted this ECG as follows: Indication: + abdominal pain (dark stool) Rate (beats per minute): 62 Rhythm: + sinus rhythm ECG [place]: + Normal ECG ST segments: + T-wave inversions (inferior leads) and + Nonspecific ST abnormalities (laterally) ECG Findings: no PVCs Comparison ECG Date: from (07/04/14) Change: the following changes noted (TWI and ST wave changes laterally are new. ) Blood Pressure Blood Pressure Findings: Elevated blood pressure Blood Pressure Disposition: further management by hospitalist MAYA Narrative Patient is a 68-year-old male with a past medical history of gastric cancer who presented to get his chemo today but had blood work which showed that he was anemic. He has had dark tarry stools since the end of February. IV was established blood work was obtained and showed a mild leukocytosis of 11.7 thousand. Hemoglobin is down to 7 from baseline of 9. Platelets are significantly elevated at 750. INR was unremarkable. BMP with a slightly elevated chloride. LFTs bilirubin were negative. Troponin was positive at 1.2. He denies any chest pain or shortness of breath. Do favor that this is secondary to the anemia and demand ischemia. He was typed and crossed and ordered 2 units PRBCs while in the ER. Patient was updated at bedside. He was placed on Protonix drip and bolus. Transfusion was started while in the ER. Discussed with the hospitalist and admitted for further work-up. CT abdomen pelvis showed no acute pathology. Cardiac Monitoring: An order was placed for continuous cardiac monitoring. The monitor shows a rate of 82 with sinus rhythm. Impression & Plan Upper gastrointestinal bleeding, Gastric cancer, Anemia, Elevated troponin, Symptomatic anemia Discharge Plan Visit Data *Final* Discharge Date/Time: 06/18/19 13:35 Chief Complaint: Abnormal Labs/Diagnostic Testing Stated Complaint: ABNORMAL LABS, SENT BY DR ROD Provider: Donnie Child Discharge Problem: Upper gastrointestinal bleeding, Gastric cancer, Anemia, Elevated troponin, Symptomatic anemia Patient Disposition: Admitted As Inpatient Discharge Instructions Interventions: ED Discharge Assessment Last Done: 06/18/19 13:35 Discharge Problem: Gastric cancer Qualifiers: Malignant neoplasm of stomach location: unspecified location Qualified Code(s): C16.9 - Malignant neoplasm of stomach, unspecified Anemia Qualifiers: Anemia type: unspecified type Qualified Code(s): D64.9 - Anemia, unspecified The scribe's documentation has been prepared under my direction and personally reviewed by me in its entirety. I confirm that the note above accurately reflects all work, treatment, procedures, and medical decision making performed by me.
--- NOTE | 2019-06-18 17:25 | Ultrasound Report ---
BILATERAL LOWER EXTREMITY VENOUS DOPPLER CLINICAL HISTORY: chest pain COMPARISON STUDY: No previous studies for comparison. TECHNIQUE: Sonography of the deep venous system of the bilateral lower extremities was performed. Co mpression and augmentation were evaluated. FINDINGS: The bilateral common femoral, superficial femoral and popliteal veins were compressible. A ugmentation was normal. Flow was shown within the deep calf vessels. IMPRESSION: No evidence of deep venous thrombus within the bilateral lower extremities. ACT 112: Negative or not required by law. Electronically signed by: Gucci Cortes M.D. 06/18/2019 5:24 PM
[2019-06-18] MEDS: NITROGLYCERIN 2% OINTMENT 30GM TUBE EXT SCH ×2 (17:28→23:06)
[2019-06-18 22:45] LABS: Hematocrit (blood only) 29.5 % (42-52); Hemoglobin 8.8 g/dL (14.0-18.0)
--- NOTE | 2019-06-18 23:41 | Communication Note ---
Date of Service: June 18, 2019 Hgb 8.8 after receiving 2 units pRBC's. Hgb goal > 10 in light of suspected non-STEMI. 3rd unit pRBC's ordered. Recheck H/H in a.m.
[2019-06-19] MEDS: PANTOprazole 40 MG in DEXTROSE 5% 100 ML IV SCH ×4 (04:49→19:45)
[2019-06-19] MEDS: NITROGLYCERIN 2% OINTMENT 30GM TUBE EXT SCH ×2 (04:58→10:54)
[2019-06-19 07:20] LABS: Hematocrit (blood only) 31.4 % (42-52); Hemoglobin 9.6 g/dL (14.0-18.0); Mean Corpuscular Hemoglobin 25.5 pg (25-34); Mean Corpuscular Hgb Conc 30.6 g/dL (32-36); Mean Corpuscular Volume 83.3 fL (80-100); Mean Platelet Volume 11.1 fL (7.4-10.4); Nucleated RBC # (auto) 0.03 K/uL (0-0); Nucleated RBC % (auto) 0.3 %; Platelet Count 543 K/uL (130-400); RDW Coefficient of Variation 20.5 % (11.5-14.5); Red Blood Count 3.77 M/uL (4.7-6.1); White Blood Count 9.63 K/uL (4.8-10.8)
[2019-06-19 07:45] LABS: BUN Creatinine Ratio 10.8 (10-20); Calcium 8.9 mg/dl (8.5-10.1); Creatinine Clr Calc Pharmacy 59.1 ml/min; Est GFR (African American) 73.3; Est GFR (Non-African American) 63.3; Potassium 3.6 mmol/L (3.5-5.1)
[2019-06-19 07:59] LABS: Troponin I 1.11 ng/ml (0-0.045)
--- NOTE | 2019-06-19 08:25 | Hospitalist Progress Note ---
Date of Service June 19, 2019 Assessment & Plan (1) Anemia: (2) Melena: -As per admission notes on 06/18/2019 "Pt is 68 y/o M with PMH HTN, HLD, h/o SMA stenosis, myeloproliferative disorder, thrombocytosis, iron deficiency anemia, gastric carcinoma presented to ER for anemia - Hgb: 6.7 found on outpatient labs today. H/O EGD: 04/10/19 - signet ring cell carcinoma, gastric ulcer Today In ER P: 64, R: 20, BP: 108/64, 99% on RA. H/H: 7.3/25.3. (baseline Hgb~8-9, was 9.0 on 06/08/19), INR: 1.2, Plt: 750 CT ABD/PELVIS: Generalized rather prominent wall thickening of the stomach, This potentially is neoplastic versus technical lack of distention. Moderate splenomegaly. Scattered colonic diverticuli with no evidence for diverticulitis." -patient was given IV protonics, and transfused 3 units of PRBC -hospitalist team placed consultation to gastroenterology and cardiology 06/19/2019 -Hospitalist physician have seen and examined the patient at bedside. this AM. He is a total of 3 units of blood transfused on this hospital stay to date. Hgb is 9.6. The troponin levels have been stable around 1. Patient denies chest pain to nurses. When hospital doctor expresses that the admitting doctors on 06/18/2019 were concerned of chest pain symptoms, elevated troponins, and anemia, the patient adamantly denied any recent chest pain symptoms. He said that the reason that he is is here is because of the low blood counts after chemotherapy. He reports he has history of ulcers but denies of gross bleeding in blood or stool. He is upset that he has been NPO in case of any further cardiac/gastroenterology workup. He is agreeable to wait for the cardiology physician to see him but the patient feels like since he already got the blood transfusions that he should be able to go home. He says that his will be coming today and likely the person who can take him back home -hospitalist is awaiting gastroenterology and cardiology consult evaluations for 06/19/2019 but at this point in time, the patient's reluctance for a further hospitalization may prevent any further inpatient workup (3) Elevated troponin: as per admission hospitalist concerns on 06/18/2019 admission that patient expressed "Anterior Chest pain yesterday and 2 days ago. No current CP. Troponin: 1.2. EKG T wave inversions inferiorly, laterally, new compared to EKG 08/2018" 06/18/2019 : cardiology service Dr. Louis reports that "EKG demonstrates new inferolateral ST segment inversion. Echocardiogram demonstrates subtle hypokinesis of the inferior posterior byrne with preserved LV function moderate mitral discussion sufficiency" and to trend troponins assess for acute change. "Ultimate goal be to stabilize medically if possible as any coronary or cardiac intervention would warrant anticoagulation and dual antiplatelet therapies for minimum 1 month. We will continue atenolol add topical nitrates continue losartan agree with transfusion aggressively to hemoglobin greater than 10 given possible anemia induced ischemia" -Continue statin, atenolol -continue aspirin management as above and including patient's reluctance on further hospitalization (4) Gastric cancer: -Following with Dr Givens for signet ring cell gastric carcinoma diagnosed in 03/2019. Pt was to start modified FOLFOX 6 chemo on 06/18/2019, however was not started yet. Planned surgical intervention with Dr Gallardo at [facility] [place]. Had port placed by Dr Cobian on 06/12/2019. 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 this AM. He is a total of 3 units of blood transfused on this hospital stay to date. Hgb is 9.6. The troponin levels have been stable around 1. Patient denies chest pain to nurses. When hospital doctor expresses that the admitting doctors on 06/18/2019 were concerned of chest pain symptoms, elevated troponins, and anemia, the patient adamantly denied any recent chest pain symptoms. He said that the reason that he is is here is because of the low blood counts after chemotherapy. He reports he has history of ulcers but denies of gross bleeding in blood or stool. He is upset that he has been NPO in case of any further gastroenterology/cardiac workup. He is agreeable to wait for the cardiology physician to see him but the patient feels like since he already got the blood transfusions that he should be able to go home. He says that his will be coming today and likely the person who can take him back home denies shortness of breath. denies dizziness. denies headache. no abdomen pain. Review of Systems Review of Systems: All systems reviewed & are unremarkable except as noted in HPI & below Physical Exam Constitutional: comfortable Eyes: PERRL, conjunctivae normal, anicteric sclerae EOM intact bilaterally ENMT: external ear and nose normal, oropharynx normal Respiratory: normal respiratory effort Cardiovascular: Rate/Rhythm: regular rate and regular rhythm Gastrointestinal (Abdomen): normal bowel sounds, soft, nontender, no hepatosplenomegaly Musculoskeletal: Head/Neck/Chest: normocephalic and head atraumatic Neurologic: PERRL, EOMI, accommodation nl, no face palsy, no dysarthria CN's II-XI intact bilaterally Psychiatric: A+Ox3, euthymic affect Results & Data ([facility]) Vital Signs (Past 12 Hours) Vital Signs Temp Pulse Pulse Resp BP BP BP 06/19/19 06:58 36.7 C 67 18 141/75 H 06/19/19 05:50 66 06/19/19 04:54 36.4 C L 70 18 160/81 H 160/81 H 06/19/19 02:45 36.7 C 67 18 150/72 H 06/19/19 02:00 36.7 C 70 16 143/74 H 06/19/19 01:30 36.8 C 70 18 147/73 H 06/19/19 01:15 36.6 C 67 18 147/74 H 06/19/19 00:58 36.6 C 67 18 149/69 H 06/18/19 23:07 36.7 C 71 18 162/78 H 06/18/19 21:16 36.6 C 66 18 170/84 H 06/18/19 20:56 36.6 C 66 18 170/84 H Pulse Ox 06/19/19 06:58 95 06/19/19 05:50 06/19/19 04:54 95 06/19/19 02:45 94 06/19/19 02:00 94 06/19/19 01:30 94 06/19/19 01:15 96 06/19/19 00:58 96 06/18/19 23:07 96 06/18/19 21:16 97 06/18/19 20:56 97 (1) Gastric cancer Malignant neoplasm of stomach location: unspecified location Qualified Code(s): C16.9 - Malignant neoplasm of stomach, unspecified (2) Anemia Anemia type: unspecified type Qualified Code(s): D64.9 - Anemia, unspecified
[2019-06-19] MEDS: ATENOLOL 50 MG TABLET PO SCH (08:51)
[2019-06-19] MEDS: LOSARTAN POTASSIUM 50 MG TAB PO SCH (08:51)
[2019-06-19] MEDS: SIMVASTATIN 40 MG TAB PO SCH (08:51)
[2019-06-19] MEDS: ASPIRIN 81 MG ECTAB PO SCH (08:52)
[2019-06-19] MEDS ORDERED: HEPARIN 100 UNIT/ML 5ML FLUSH FLUSH PRN (11:07)
--- NOTE | 2019-06-19 12:02 | Gastroenterology Progress Note ---
Date of Service June 19, 2019 Assessment & Plan (1) Melena: (2) Elevated troponin: (3) Anemia: (4) Gastric cancer: Pt is a 68 y/o male w gastric adenocarcinoma who was referred to ED for symptomatic anemia. He had received 2 doses of Venofer IV, last on 05/30. He was supposed to start FOLFOX chemo yesterday but cancelled due to anemia. Plan was for him to undergo FOLFOX x 3 then gastrectomy by GI Surgery. He does have melena but this hasn't changed in amt, frequency. He has SHIELDS, chest pressure and fatigue symptoms. Troponin up on eval ? related to demand ischemia. No plans for cardiac cath per Cardiology, rather continue conservative med management. He hasn't showed any s/s of further GI bleeding overnight. H/H improved after 3U PRBC transfusion. - Monitor blood ct closely and transfuse prn, goal Hgb >10 - PPI gtt - Cardiology to be consulted - Advanced to FL diet. NPO after midnight. Will continue to monitor him for further s/s of GI bleeding. If any is present overnight,would set him up for possible inpt EGD Attg add: I interviewed and examined pt, reviewed chart and labs. Pt without further bleeding overnight, appropriate rise in hgb with x fusion. Suspect bleeding from gastric cancer; cont PPI gtt overnight. OK to cont ASA given increased troponin and stable vs/hgb. Follow overnight; if hgb drops again, plan EGD. Otherwise, will defer EGD if hgb o/w stable. Admission and Anticipated Discharge Date Admission Date: June 18, 2019 Subjective Pt denies any bowels movements overnight or this AM. Denies abd pain, n/v, any m ore SOB or CP No plans for cardiac cath by Cardiology H/H improved after 3U PRBC transfusion Review of Systems Review of Systems: All systems reviewed & are unremarkable except as noted in HPI & below Physical Exam Constitutional: WD/WN, vitals as above well groomed, cooperative and comfortable Eyes: PERRL, conjunctivae normal, anicteric sclerae ENMT: external ear and nose normal, oropharynx normal Respiratory: normal respiratory effort, lungs clear to auscultation Cardiovascular: RRR, no murmur, no edema Gastrointestinal (Abdomen): normal bowel sounds, soft, nontender, no hepatosplenomegaly Skin: no rashes, warm and dry no jaundice Psychiatric: A+Ox3, euthymic affect Lymphatic: no lymphedema Results & Data ([facility]) Vital Signs (Past 12 Hours) Vital Signs Temp Pulse Pulse Resp BP BP BP 06/19/19 08:00 71 06/19/19 06:58 36.7 C 67 18 141/75 H 06/19/19 05:50 66 06/19/19 04:54 36.4 C L 70 18 160/81 H 160/81 H 06/19/19 02:45 36.7 C 67 18 150/72 H 06/19/19 02:00 36.7 C 70 16 143/74 H 06/19/19 01:30 36.8 C 70 18 147/73 H 06/19/19 01:15 36.6 C 67 18 147/74 H 06/19/19 00:58 36.6 C 67 18 149/69 H Pulse Ox 06/19/19 08:00 06/19/19 06:58 95 06/19/19 05:50 06/19/19 04:54 95 06/19/19 02:45 94 06/19/19 02:00 94 06/19/19 01:30 94 06/19/19 01:15 96 06/19/19 00:58 96 (1) Gastric cancer Malignant neoplasm of stomach location: unspecified location Qualified Code(s): C16.9 - Malignant neoplasm of stomach, unspecified (2) Anemia Anemia type: unspecified type Qualified Code(s): D64.9 - Anemia, unspecified
[2019-06-19 14:19] LABS: Basophils # (auto) 0.05 K/uL (0-0.2); Basophils % (auto) 0.5 %; Eosinophils # (auto) 0.27 K/uL (0-0.5); Eosinophils % (auto) 2.8 %; Hematocrit (blood only) 30.3 % (42-52); Hemoglobin 9.4 g/dL (14.0-18.0); Immature Granulocytes # (auto) 0.02 K/uL (0.00-0.02); Immature Granulocytes % (auto) 0.2 %; Lymphocytes # (auto) 0.66 K/uL (1.2-3.4); Lymphocytes % (auto) 6.8 %; Mean Corpuscular Hemoglobin 25.8 pg (25-34); Mean Corpuscular Volume 83.2 fL (80-100); Mean Platelet Volume 11.1 fL (7.4-10.4); Monocytes # (auto) 0.46 K/uL (0.11-0.59); Monocytes % (auto) 4.7 %; Neutrophils # (auto) 8.24 K/uL (1.4-6.5); Nucleated RBC # (auto) 0.03 K/uL (0-0); Nucleated RBC % (auto) 0.3 %; Platelet Count 562 K/uL (130-400); RDW Standard Deviation 59.4 fL (36.4-46.3); Red Blood Count 3.64 M/uL (4.7-6.1)
[2019-06-19 14:38] LABS: Anisocytosis Present; Ovalocytes 1+; Polychromasia 1+
--- NOTE | 2019-06-19 14:39 | Electrocardiogram Report ---
Test Reason : Blood Pressure : / mmHG Vent. Rate : 072 BPM Atrial Rate : 072 BPM P-R Int : 178 ms QRS Dur : 096 ms QT Int : 414 ms P-R-T Axes : 049 056 -69 degrees QTc Int : 453 ms Normal sinus rhythm Abnormal ECG When compared with ECG of 18-JUN-2019 10:39, (unconfirmed) Criteria for Inferior infarct are no longer Present Confirmed by Quintin Vega ([id number]) on 06/19/2019 2:39:31 PM Referred By: REFERRED SELF Confirmed By:James Vega
--- NOTE | 2019-06-19 14:48 | Cardiology Progress Note ---
Date of Service June 19, 2019 Assessment & Plan (1) Elevated troponin: Patient presents noting symptoms of chest pain atypical for angina over the past weekend symptoms described as burning sharp pain after meal of hot wings. Improved when sitting upright. He is significantly anemic on presentation for anticipated chemotherapy today EKG demonstrates new inferolateral ST segment inversion. Echocardiogram demonstrates subtle hypokinesis of the inferior posterior byrne with preserved LV function moderate mitral discussion sufficiency Plan: EKG this morning less pronounced but still present inferolateral ST segment changes. Discussed with patient suspect that recent profound anemia unmasked underlying ischemic heart disease. Patient relatively asymptomatic to asymptomatic from a cardiac standpoint. Discussed options of management would include diagnostic cardiac catheterization with ultimately delaying clinical treatment course the inherent need for anticoagulation and antiplatelet therapies with any treatment. Would recommend empiric therapy continue atenolol and losartan as prior hospitalization continue lipid reduction with simvastatin change topical nature to oral isosorbide 30 mg p.o. daily. Continue aspirin if able Keep hemoglobin above 9 preferably closer to 10 We will be glad to follow in hospital and outpatient as clinical course progresses. Patient anticipate chemotherapy and abdominal surgery (2) Symptomatic anemia: (3) Hypertension: (4) Gastric cancer: Subjective Patient seen, chart, medications, telemetry reviewed. Patient feels improved this morning following transfusion. No chest pain shortness of breath dizziness or lightheadedness overnight. No overt bleeding with dark stools only. No fevers or chills. Blood pressure trending slightly upward. Review of Systems Review of Systems: All systems reviewed & are unremarkable except as noted in HPI & below Physical Exam Constitutional: no acute distress Eyes: PERRL, conjunctivae normal, anicteric sclerae ENMT: external ear and nose normal, oropharynx normal Neck: trachea midline, no thyromegaly Respiratory: normal respiratory effort, lungs clear to auscultation Cardiovascular: Rate/Rhythm: regular rate and regular rhythm Heart Sounds: normal S1 and normal S2; no gallop and no murmur Palpation: normal PMI Vessels: normal carotid upstroke and radial pulses present; no JVD and no carotid bruit Extremities: no edema Gastrointestinal (Abdomen): normal bowel sounds, soft, nontender, no hepatosplenomegaly Musculoskeletal: no cyanosis or clubbing, extremities motor strength 5/5 Skin: no rashes, warm and dry Neurologic: PERRL, EOMI, accommodation nl, no face palsy, no dysarthria Psychiatric: A+Ox3, euthymic affect Results & Data Vital Signs (Past 12 Hours) Vital Signs Temp Pulse Pulse Resp BP BP BP 06/19/19 12:00 36.4 C L 63 20 156/79 H 06/19/19 08:00 71 06/19/19 06:58 36.7 C 67 18 141/75 H 06/19/19 05:50 66 06/19/19 04:54 36.4 C L 70 18 160/81 H 160/81 H 06/19/19 02:45 36.7 C 67 18 150/72 H Pulse Ox 06/19/19 12:00 95 06/19/19 08:00 06/19/19 06:58 95 06/19/19 05:50 06/19/19 04:54 95 06/19/19 02:45 94 Laboratory Results Laboratory Results - last 24 hr 06/18/19 06/18/19 06/18/19 10:38 16:20 22:24 WBC RBC Hgb Hct MCV MCH MCHC RDW Std Deviation RDW Coeff of Evens Plt Count MPV Immature Gran % (Auto) Neut % (Auto) Lymph % (Auto) [place] % (Auto) Eos % (Auto) Baso % (Auto) Immature Gran # (Auto) Neut # (Auto) Lymph # (Auto) [place] # (Auto) Eos # (Auto) Baso # (Auto) Absolute Nucleated RBC Nucleated RBC % (auto) Polychromasia Anisocytosis Ovalocytes Sodium Potassium Chloride Carbon Dioxide Anion Gap BUN Creatinine Est Cr Clr Drug Dosing Est GFR ( Amer) Est GFR (Non-Af Amer) BUN/Creatinine Ratio Glucose Calcium Troponin I 1.110 H* 1.070 H* Triglycerides Cholesterol LDL Cholesterol, Calc VLDL Cholesterol, Calc HDL Cholesterol Cholesterol/HDL Ratio Blood Type O Positive Antibody Screen NEGATIVE Crossmatch See Detail 06/18/19 06/19/19 06/19/19 22:24 06:30 06:30 WBC 9.63 RBC 3.77 L Hgb 8.8 L 9.6 L Hct 29.5 L 31.4 L MCV 83.3 MCH 25.5 MCHC 30.6 L RDW Std Deviation 60.0 H RDW Coeff of Evens 20.5 H Plt Count 543 H MPV 11.1 H Immature Gran % (Auto) Neut % (Auto) Lymph % (Auto) [place] % (Auto) Eos % (Auto) Baso % (Auto) Immature Gran # (Auto) Neut # (Auto) Lymph # (Auto) [place] # (Auto) Eos # (Auto) Baso # (Auto) Absolute Nucleated RBC 0.03 H Nucleated RBC % (auto) 0.3 Polychromasia Anisocytosis Ovalocytes Sodium 141 Potassium 3.6 Chloride 110 H Carbon Dioxide 25 Anion Gap 6.0 BUN 13 Creatinine 1.19 Est Cr Clr Drug Dosing 59.1 Est GFR ( Amer) 73.3 Est GFR (Non-Af Amer) 63.3 BUN/Creatinine Ratio 10.8 Glucose 93 Calcium 8.9 Troponin I 1.110 H* Triglycerides 136 Cholesterol 76 LDL Cholesterol, Calc 26 VLDL Cholesterol, Calc 27 HDL Cholesterol 23 Cholesterol/HDL Ratio 3 Blood Type Antibody Screen Crossmatch 06/19/19 06/19/19 14:04 14:04 WBC 9.70 RBC 3.64 L Hgb 9.4 L Hct 30.3 L MCV 83.2 MCH 25.8 MCHC 31.0 L RDW Std Deviation 59.4 H RDW Coeff of Evens 20.0 H Plt Count 562 H MPV 11.1 H Immature Gran % (Auto) 0.2 Neut % (Auto) 85.0 Lymph % (Auto) 6.8 [place] % (Auto) 4.7 Eos % (Auto) 2.8 Baso % (Auto) 0.5 Immature Gran # (Auto) 0.02 Neut # (Auto) 8.24 H Lymph # (Auto) 0.66 L [place] # (Auto) 0.46 Eos # (Auto) 0.27 Baso # (Auto) 0.05 Absolute Nucleated RBC 0.03 H Nucleated RBC % (auto) 0.3 Polychromasia 1+ Anisocytosis Present Ovalocytes 1+ Sodium Potassium Chloride Carbon Dioxide Anion Gap BUN Creatinine Est Cr Clr Drug Dosing Est GFR ( Amer) Est GFR (Non-Af Amer) BUN/Creatinine Ratio Glucose Calcium Troponin I 1.010 H* Triglycerides Cholesterol LDL Cholesterol, Calc VLDL Cholesterol, Calc HDL Cholesterol Cholesterol/HDL Ratio Blood Type Antibody Screen Crossmatch (1) Gastric cancer Malignant neoplasm of stomach location: unspecified location Qualified Code(s): C16.9 - Malignant neoplasm of stomach, unspecified
--- NOTE | 2019-06-19 14:51 | Electrocardiogram Report ---
Test Reason : Blood Pressure : / mmHG Vent. Rate : 074 BPM Atrial Rate : 074 BPM P-R Int : 168 ms QRS Dur : 096 ms QT Int : 416 ms P-R-T Axes : 026 034 -67 degrees QTc Int : 461 ms Normal sinus rhythm Possible Inferior infarct , age undetermined Abnormal ECG When compared with ECG of 19-JUN-2019 06:16, (unconfirmed) Borderline criteria for Inferior infarct are now Present Confirmed by Quintin Vega ([id number]) on 06/19/2019 2:50:54 PM Referred By: REFERRED SELF Confirmed By:James Vega
--- NOTE | 2019-06-19 15:06 | Electrocardiogram Report ---
Test Reason : Blood Pressure : / mmHG Vent. Rate : 062 BPM Atrial Rate : 062 BPM P-R Int : 170 ms QRS Dur : 092 ms QT Int : 452 ms P-R-T Axes : 012 022 -74 degrees QTc Int : 458 ms Normal sinus rhythm Inferior infarct , age undetermined Abnormal ECG When compared with ECG of 04-JUL-2014 13:16, Inferior infarct is now Present T wave inversion now evident in Inferior leads T wave inversion now evident in Lateral leads Confirmed by Quintin Vega ([id number]) on 06/19/2019 3:06:05 PM Referred By: Confirmed By:James Vega
[2019-06-19] MEDS: ISOSORBIDE MONO EXTENDED REL 60 MG TABCR PO SCH (15:56)
[2019-06-20] MEDS: PANTOprazole 40 MG in DEXTROSE 5% 100 ML IV SCH ×2 (00:48→05:35)
[2019-06-20] MEDS: ISOSORBIDE MONO EXTENDED REL 60 MG TABCR PO SCH (08:28)
[2019-06-20] MEDS: ASPIRIN 81 MG ECTAB PO SCH (08:29)
[2019-06-20] MEDS: ATENOLOL 50 MG TABLET PO SCH (08:29)
[2019-06-20] MEDS: SIMVASTATIN 40 MG TAB PO SCH (08:29)
[2019-06-20] MEDS: LOSARTAN POTASSIUM 50 MG TAB PO SCH (08:29)
[2019-06-20 09:00] LABS: Basophils # (auto) 0.05 K/uL (0-0.2); Basophils % (auto) 0.6 %; Eosinophils % (auto) 3.4 %; Hematocrit (blood only) 32.1 % (42-52); Hemoglobin 9.8 g/dL (14.0-18.0); Immature Granulocytes # (auto) 0.03 K/uL (0.00-0.02); Immature Granulocytes % (auto) 0.3 %; Lymphocytes # (auto) 0.83 K/uL (1.2-3.4); Lymphocytes % (auto) 9.4 %; Mean Corpuscular Hemoglobin 25.7 pg (25-34); Mean Corpuscular Hgb Conc 30.5 g/dL (32-36); Mean Platelet Volume 11.9 fL (7.4-10.4); Monocytes # (auto) 0.44 K/uL (0.11-0.59); Neutrophils # (auto) 7.21 K/uL (1.4-6.5); Neutrophils % (auto) 81.3 %; Platelet Count 588 K/uL (130-400); RDW Coefficient of Variation 19.9 % (11.5-14.5); RDW Standard Deviation 60.1 fL (36.4-46.3); Red Blood Count 3.82 M/uL (4.7-6.1); White Blood Count 8.86 K/uL (4.8-10.8)
--- NOTE | 2019-06-20 09:46 | Hospitalist Progress Note ---
Date of Service June 20, 2019 Assessment & Plan (1) Acute blood loss anemia: (2) Melena: Acute blood loss anemia likely secondary to GI bleed, likely due to gastric cancer -As per admission notes on 06/18/2019 "Pt is 68 y/o M with PMH HTN, HLD, h/o SMA stenosis, myeloproliferative disorder, thrombocytosis, iron deficiency anemia, gastric carcinoma presented to ER for anemia - Hgb: 6.7 found on outpatient labs today. H/O EGD: 04/10/19 - signet ring cell carcinoma, gastric ulcer Today In ER P: 64, R: 20, BP: 108/64, 99% on RA. H/H: 7.3/25.3. (baseline Hgb~8-9, was 9.0 on 06/08/19), INR: 1.2, Plt: 750 CT ABD/PELVIS: Generalized rather prominent wall thickening of the stomach, This potentially is neoplastic versus technical lack of distention. Moderate splenomegaly. Scattered colonic diverticuli with no evidence for diverticulitis." -patient was given IV protonics, and transfused 3 units of PRBC Hemoglobin improved from 7.3-9.8 after 3 units of packed RBCs were given Patient placed on IV Protonix, no recurrence of melena or hematochezia while admitted Evaluated by GI service, does not recommend EGD at this point May resume aspirin per GI service Change omeprazole to Protonix twice daily Repeat CBC on follow-up with primary care physician and hematology/oncology (3) Elevated troponin: Possible type II demand ischemia as per admission hospitalist concerns on 06/18/2019 admission that patient expressed "Anterior Chest pain yesterday and 2 days ago. No current CP. Troponin: 1.2. EKG T wave inversions inferiorly, laterally, new compared to EKG 08/2018" cardiology service Dr. Louis reports that "EKG demonstrates new inferolateral ST segment inversion. Echocardiogram demonstrates subtle hypokinesis of the inferior posterior byrne with preserved LV function moderate mitral discussion sufficiency" and to trend troponins assess for acute change. "Ultimate goal be to stabilize medically if possible as any coronary or cardiac intervention would warrant anticoagulation and dual antiplatelet therapies for minimum 1 month. Recommendations: Continue aspirin Continue atenolol, losartan, start Imdur 30 mg daily Continue statin Maintain hemoglobin around than 10 given possible anemia induced ischemia Follow-up with Dr. 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 Pt was to start modified FOLFOX 6 chemo on 06/18/2019, however was not started yet. [place] [facility] [place] Had port placed by Dr Cobian on 06/12/2019. --Follow-up with Dr. 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 Givens on Tuesday as scheduled Follow-up with PCP as outlined in discharge instruction Admission and Anticipated Discharge Date Admission Date: June 18, 2019 Subjective Follow-up for anemia, possible GI bleed Seen resting in bed, sitting up, having breakfast, comfortable States he feels fine overall No recurrence of melena or hematochezia, last bowel movement yesterday, formed, brown Denies abdominal pain, nausea vomiting No chest pain, shortness of breath, palpitations, dizziness No other symptoms States he is ready would like to be discharged today Review of Systems Review of Systems: All systems reviewed & are unremarkable except as noted in HPI & below Physical Exam Physical Exam: General- oriented x 3, not in distress, speaks in sentences with no effort or accessory muscle use Head- atraumatic Eyes- PERRL, EOMI, anicteric ENT- oropharynx clear Neck- supple, no JVD, no adenopathy, no thyromegaly; carotids +2/2, no bruits appreciated Lungs- clear to auscultation bilaterally, no rales/wheezes Heart- normal rate, regular rhythm; no murmur, no gallop, no rub appreciated Abdomen- normal bowel sounds, nondistended, soft, nontender, no masses or hepatosplenomegaly Extremities- no pretibial edema, no calf tenderness; peripheral pulses intact Neuro- alert, oriented x 3; CN 2-12 grossly intact; motor 5/5 bilaterally;sensation 100% on all extremities; no other gross focal neurologic deficits Skin- warm & dry Results & Data ([facility]) Vital Signs (Past 12 Hours) Vital Signs Temp Pulse Pulse Resp BP Pulse Ox 06/20/19 03:18 36.8 C 67 17 145/76 H 94 06/20/19 00:00 36.7 C 63 19 140/68 93 06/19/19 23:10 58 L Laboratory Results Laboratory Results - last 24 hr 06/18/19 06/20/19 06/20/19 10:38 08:09 08:09 WBC 8.86 RBC 3.82 L Hgb 9.8 L Hct 32.1 L MCV 84.0 MCH 25.7 MCHC 30.5 L RDW Std Deviation 60.1 H RDW Coeff of Evens 19.9 H Plt Count 588 H MPV 11.9 H Immature Gran % (Auto) 0.3 Neut % (Auto) 81.3 Lymph % (Auto) 9.4 [place] % (Auto) 5.0 Eos % (Auto) 3.4 Baso % (Auto) 0.6 Immature Gran # (Auto) 0.03 H Neut # (Auto) 7.21 H Lymph # (Auto) 0.83 L [place] # (Auto) 0.44 Eos # (Auto) 0.30 Baso # (Auto) 0.05 Troponin I 0.973 H* Crossmatch See Detail (1) Gastric cancer Malignant neoplasm of stomach location: unspecified location Qualified Code(s): C16.9 - Malignant neoplasm of stomach, unspecified
--- NOTE | 2019-06-20 11:15 | Gastroenterology Progress Note ---
Date of Service June 20, 2019 Assessment & Plan (1) Melena: (2) Elevated troponin: (3) Anemia: (4) Gastric cancer: Pt is a 68 y/o male w gastric adenocarcinoma who was referred to ED for symptomatic anemia, melena. He had received 2 doses of Venofer IV, last on 05/30. He was supposed to start FOLFOX chemo but cancelled due to anemia. He has SHIELDS, chest pressure and fatigue symptoms. Troponin up on eval, evaluated by Cardiology, suspected demand ischemia. Cardiac cath deferred, per Cardiology will do conservative med management instead in light of pt's plans for chemo and eventually surgery. He hasn't had any more signs of melena since admitted. His blood ct had been stable since given 3U PRBC transfusion w Hgb >9. - Continue Protonix 40mg BID - Advanced to heart healthy, soft diet - No contraindication for DC home today from GI standpoint. Will defer EGD eval as no active s/s of GI bleeding, stable blood ct and pt also refusing. - F/U w Cardiology. - Continue f/u w Oncology & GI Surgery Admission and Anticipated Discharge Date Admission Date: June 18, 2019 Subjective Pt had last BM yesterday, brown stools. Denies abd pain, n/v. Blood ct had been stable overnight Review of Systems Review of Systems: All systems reviewed & are unremarkable except as noted in HPI & below Physical Exam Constitutional: WD/WN, vitals as above well groomed, cooperative and comfortable Eyes: PERRL, conjunctivae normal, anicteric sclerae ENMT: external ear and nose normal, oropharynx normal Respiratory: normal respiratory effort, lungs clear to auscultation Cardiovascular: RRR, no murmur, no edema Gastrointestinal (Abdomen): normal bowel sounds, soft, nontender, no hepatosplenomegaly Skin: no rashes, warm and dry no jaundice Psychiatric: A+Ox3, euthymic affect Lymphatic: no lymphedema Results & Data ([facility]) Vital Signs (Past 12 Hours) Vital Signs Temp Pulse Pulse Resp BP Pulse Ox Pulse Ox 06/20/19 10:02 36.8 C 67 17 145/76 H 94 06/20/19 08:00 71 94 06/20/19 03:18 36.8 C 67 17 145/76 H 94 06/20/19 00:00 36.7 C 63 19 140/68 93 (1) Anemia Anemia type: unspecified type Qualified Code(s): D64.9 - Anemia, unspecified (2) Gastric cancer Malignant neoplasm of stomach location: unspecified location Qualified Code(s): C16.9 - Malignant neoplasm of stomach, unspecified
--- NOTE | 2019-06-20 21:01 | Discharge Summary ---
Date of Service June 20, 2019 Admission HPI Per Admitting Provider Pt is 68 y/o M with PMH HTN, HLD, h/o SMA stenosis, gastric carcinoma presented to ER for anemia found on outpatient labs today. Pt with history myeloproliferative disorder, thrombocytosis, iron deficiency anemia and is following with Dr Givens for signet ring cell gastric carcinoma diagnosed in 03/2019. Pt was to start modified FOLFOX 6 chemo today, however was not started yet. Planned surgical intervention with Dr Gallardo at [facility] [place]. Pt had port placed by Dr Cobian on 06/12/2019. Today outpatient labs with Hgb: 6.7 and was referred to ER. Pt reports daily melena since 02/2019. Pt reports chronic fatigue and generalized weakness however reports increased fatigue past several days. 3 days ago noted dizziness with standing. Today SOB with climbing flight of stairs. Pt states 2 days ago had constant aching pain across his chest that was worse with lying supine. Denies any SOB, diaphoresis or dizziness with the CP. He took 3 OTC Aleve that evening and yesterday reports had decreased CP. Today without any further chest pain. Denies nausea, vomiting or abdominal pain. Drinks 3-4 beers daily. Takes Aleve a couple of times a month. Denies history blood transfusion in past. Denies fever/chills, diaphoresis, [place], syncope, vision changes, neck pain, orthopnea, palpitations, cough, sore throat, choking, otalgia, rhinorrhea, paresthesias, weakness, extremity weakness, extremity edema, rashes, urinary symptoms. Admission Exam Per Admitting Provider General: no distress, WDWN Head: normocephalic, atraumatic Eyes: PERRL, EOM's intact, conjunctiva pale, anicteric ENT: normal inspection external ears, nose, mucous membranes moist Neck: supple, trachea midline Lungs: clear, no respiratory distress, no wheezing/rhonchi/rales CV: RRR, no murmur, no pretibial edema; left upper chest wall with healing incision without erythema Abd: normal BS, soft, non-tender Ext: no cyanosis, no calf tenderness Neuro: A&O x 3, no focal deficits noted, normal affect Skin: warm, dry Principal Diagnosis Acute blood loss anemia likely secondary to GI bleed, likely due to gastric cancer Discharge Exam General- oriented x 3, not in distress, speaks in sentences with no effort or accessory muscle use Head- atraumatic Eyes- PERRL, EOMI, anicteric ENT- oropharynx clear Neck- supple, no JVD, no adenopathy, no thyromegaly; carotids +2/2, no bruits appreciated Lungs- clear to auscultation bilaterally, no rales/wheezes Heart- normal rate, regular rhythm; no murmur, no gallop, no rub appreciated Abdomen- normal bowel sounds, nondistended, soft, nontender, no masses or hepatosplenomegaly Extremities- no pretibial edema, no calf tenderness; peripheral pulses intact Neuro- alert, oriented x 3; CN 2-12 grossly intact; motor 5/5 bilaterally;sensation 100% on all extremities; no other gross focal neurologic deficits Skin- warm & dry Discharge Data Allergies Allergy/AdvReac Type Severity Reaction Status Date / Time No Known Allergies Allergy Verified 06/18/19 11:05 Consultations 06/18/19 12:34 ED Decision to Admit Stat 06/18/19 15:54 Consult Cardiology Routine Consult Case Management - Discharge Planning Routine Consult Gastroenterology Routine Ordered Studies 06/18/19 10:54 CT abd pelvis IV con only CT DOSE: 742.69 mGycm HISTORY: gastric cancer w/ dark tarry stools TECHNIQUE: Multiaxial CT images of the abdomen and pelvis were performed following the use of intravenous contrast. A dose lowering technique was utilized adhering to the principles of ALARA. COMPARISON STUDY: None. FINDINGS: The lung bases are clear. Liver is uniform. Spleen is enlarged with a maximum linear dimension of 14 cm. It appears to be general wall thickening of the stomach. Components of this may be technical although given the history of a gastric neoplastic process. Neoplasm is not excluded. The small bowel appears to be unremarkable. There is no significant periaortic or mesenteric adenopathy. The colonic bowel pattern is nonobstructive. There are scattered diverticuli throughout the colon with no evidence for acute diverticulitis. The kidneys are negative for hydronephrosis. There are unremarkable postoperative changes of the low lumbar spine consistent with laminectomy and fusion. IMPRESSION: 1. Generalized rather prominent wall thickening of the stomach 2. This potentially is neoplastic versus technical lack of distention. 3. Moderate splenomegaly. 4. Scattered colonic diverticuli with no evidence for diverticulitis. 06/18/19 15:54 US venous doppler LE Urgent IMPRESSION: No evidence of deep venous thrombus within the bilateral lower extremities. Hospital Course (1) Acute blood loss anemia: (2) Melena: Acute blood loss anemia likely secondary to GI bleed, likely due to gastric cancer -As per admission notes on 06/18/2019 "Pt is 68 y/o M with PMH HTN, HLD, h/o SMA stenosis, myeloproliferative disorder, thrombocytosis, iron deficiency anemia, gastric carcinoma presented to ER for anemia - Hgb: 6.7 found on outpatient labs today. H/O EGD: 04/10/19 - signet ring cell carcinoma, gastric ulcer Today In ER P: 64, R: 20, BP: 108/64, 99% on RA. H/H: 7.3/25.3. (baseline Hgb~8-9, was 9.0 on 06/08/19), INR: 1.2, Plt: 750 CT ABD/PELVIS: Generalized rather prominent wall thickening of the stomach, This potentially is neoplastic versus technical lack of distention. Moderate splenomegaly. Scattered colonic diverticuli with no evidence for diverticulitis." -patient was given IV protonix, and transfused 3 units of PRBC Hemoglobin improved from 7.3 --> 9.8 after 3 units of packed RBCs were given Patient placed on IV Protonix, no recurrence of melena or hematochezia while admitted Evaluated by GI service, does not recommend EGD at this point May resume aspirin per GI service Change omeprazole to Protonix twice daily Repeat CBC on follow-up with primary care physician and hematology/oncology (3) Elevated troponin: Possible type II demand ischemia as per admission hospitalist concerns on 06/18/2019 admission that patient expressed "Anterior Chest pain yesterday and 2 days ago. No current CP. Troponin: 1.2. EKG T wave inversions inferiorly, laterally, new compared to EKG 08/2018" cardiology service Dr. Louis reports that "EKG demonstrates new inferolateral ST segment inversion. Echocardiogram demonstrates subtle hypokinesis of the inferior posterior byrne with preserved LV function moderate mitral discussion sufficiency" and to trend troponins assess for acute change. "Ultimate goal be to stabilize medically if possible as any coronary or cardiac intervention would warrant anticoagulation and dual antiplatelet therapies for minimum 1 month. Recommendations: Continue aspirin Continue atenolol, losartan, start Imdur 30 mg daily Continue statin Maintain hemoglobin around than 10 given possible anemia induced ischemia Follow-up with Dr. 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 Pt was to start modified FOLFOX 6 chemo on 06/18/2019, however was not started yet. Planned surgical intervention with Dr Gallardo at [facility] [place]. Had port placed by Dr Cobian on 06/12/2019. --Follow-up with Dr. 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 Givens on Tuesday as scheduled Follow-up with PCP as outlined in discharge instruction Total Time Total Time Spent Total Time Spent (In Minutes): 45 minutes Discharge Plan Discharge Items Patient Disposition: Home - Self-Care Reason For Visit: ANEMIA Discharge Diagnosis: ANEMIA, LIKELY FROM GASTROINTESTINAL BLEED Activity: As commented below Activity Comment: RESUME ACTIVITY GRADUALLY TOLERATED, NO HEAVY EXERTION Lifting: Wait until after follow-up appointment Exercise/Sports: Wait until after follow-up appointment Driving/Machine Use: NO DRIVING UNTIL RE-EVALUATED AND ALLOWED BY PRIMARY CARE PHYSICIAN Non-emergency contact: Primary Care Provider and Oncologist Call non-emergency contact if: you have any medication questions, your symptoms worsen and you have a fever Follow-up/Referrals: Lavell Louis MD [Physician] - 07/06/19 2:45 pm (Appointment with [facility]) Jesenia Hartman MD [Primary Care Provider] - 06/22/19 12:45 pm Diet: Heart Healthy Addtl Attending Provider Instructions: PLEASE REVIEW YOUR NEW MEDICATION LIST AND FOLLOW INSTRUCTIONS CAREFULLY. DIRECTION FOR NITROSTAT: take 1 tab immediately as needed for chest pain; if with no improvement after 3 minutes, call 911 if chest pain improves with 1 tablet, call your Primary Care Physician immediately CALL PRIMARY CARE PHYSICIAN OR RETURN TO THE ER IMMEDIATELY IF WITH RECURRENCE OF SYMPTOMS, BLACK OR BLOOD IN THE STOOLS, WEAKNESS, DIZZINESS, CHEST PAIN, PALPITATIONS. FOLLOW UP APPOINTMENTS: 06/22/2019 12:45 PM Provider Jesenia Alford MD Department [facility] Follow up with Inspector Material Disposition Dr. Louis in 2 weeks, contact information outline above. Please call his office for an appointment. 06/25/2019 7:45 AM Provider Lab [facility] Department Laboratory [facility] 06/25/2019 8:45 AM Provider Chair 5 Hem Onc [facility] Department Hematology/Oncology Treatment, [place] 07/10/2019 9:30 AM Provider MARSHA Stone Department Gastroenterology, [facility] 10/02/2019 8:00 AM Provider MAYELIN [address] Department Vascular Lab [facility] 10/02/2019 9:00 AM Provider Berry Olson MD Department Vascular Surg [facility] Pending Studies at Discharge: No Stand-Alone Forms: My [facility] [employer], Smoking Cessation Medications and DC Order Prescriptions: New isosorbide mononitrate 60 mg Tablet Extended Release 24 Hr 60 mg PO QAM 30 Days Qty: 30 RF: 2 nitroglycerin [Nitrostat] 0.4 mg Tablet, Sublingual 0.4 mg sublingual UD PRN (Reason: chest pain) Qty: 14 RF: 0 pantoprazole 40 mg tablet,delayed release (DR/EC) 40 mg PO BID 30 Days Qty: 60 RF: 2 Continued losartan 50 mg Tablet 50 mg PO QAM RF: 0 aspirin [Aspirin Low Dose] 81 mg Tablet,Delayed Release (Dr/Ec) 81 mg PO QAM RF: 0 simvastatin 40 mg Tablet 40 mg PO DAILY RF: 0 atenolol 50 mg Tablet 50 mg PO QAM RF: 0 cholecalciferol (vitamin D3) [Vitamin D3] 25 mcg (1,000 unit) Tablet 1,000 unit PO QAM RF: 0 ferrous sulfate 143 mg (45 mg iron) Tablet Extended Release 143 mg PO QAM RF: 0 Discontinued omeprazole 40 mg Capsule,Delayed Release(Dr/Ec) 40 mg PO QAM RF: 0 Discharge Orders: Discharge Order (Routine); Ordered 06/20/19 Ordered By: Thuan Jones Admission Data Admit Date/Time: 06/18/19 12:45 Attending Provider: Thuan Jones Admit Provider: Wade Jones Primary Care Provider: Jesenia Hartman Other Providers: Wade Jones ; Wade Louis ; Timothy Etienne ; Rudy Mccabe Other Interventions: Discharge Summary Assessment (RN) Last Done: 06/20/19 10:02 ID Date/Time DO NOT enter until pt leaves facility: 06/20/19 13:06
--- NOTE | 2019-06-26 11:12 | Coding Query ---
CODING QUERY To promote full compliance with coding requirements relating to patient care, provider participation is requested in all cases of baggagemaster uncertainty. Please assist us with the question(s) below: Coding Question(s): Patient with stomach cancer admitted for acute blood loss anemia , transfused 3 UPC's. Also with rising troponins.. Progress notes mention NSTEMI, demand ischemia and type 2 ischemia. Please check below , pertaining to the rise in troponins- the diagnosis that was treated . Thanks for your help! KAMLESH Yancey [facility] Physician's Response(s): Demand Ischemia X___ Type 2 Demand Ischemia Cannot clinically correlate if demand ischemia or Type 2 Demand Ischemia was treated Other/ Please document: Principal Diagnosis: "that condition established after study, to be chiefly responsible for occasioning the admission of the patient to the hospital for care." Co-Existing Principal Diagnosis: "when two or more diagnoses equally meet the criteria for principal diagnosis as determined by the circumstances of admission, diagnostic work up, and/or therapy provided, and the Alphabetic Index, Tabular List, or another coding guideline does not provide sequencing direction, any one of the diagnoses may be sequenced first." "When the physician has documented what appears to be a current diagnosis in the body of the record, but has not included the diagnosis in the final diagnostic statement, the physician should be asked whether the diagnosis should be added." (Source Coding Clinic 2 QTR90. p3-4) ROBD
== END 2019-06-20 13:06 | disposition home or self-care (01) | DRG 374 ==
LOC: ED 10:02 → 2S 12:45 → SUATTDRO 12:45 → 2S 13:35